=== PATIENT | male | born 1965 | race Caucasian/White ===

== ENCOUNTER → 2016-08-18 | Outpatient (CLI) | payer BC ==
[~2016-08-18] MED LIST: CITA20TA9 PO; TRAM-10 PO
--- NOTE | 2016-08-18 13:30 | DIAGNOSTIC IMAGING REPORT ---
CT SCAN OF THE PARANASAL SINUSES CLINICAL HISTORY: Sinusitis. COMPARISON STUDY: No priors. TECHNIQUE: High-resolution CT scan of the paranasal sinuses is performed. Images are reviewed in the axial, sagittal, and coronal planes. IV contrast was not administered for this examination. CT DOSE: 568.83 mGy.cm FINDINGS: Postoperative change: There is evidence of previous maxillary antrectomy with antrostomy formation. Maxillary antra: There is trace mucosal thickening within the right maxillary antrum. Moderate mucosal thickening is seen in the left maxillary antrum with an air-fluid level. Thickening and sclerosis of the antral narayan indicates chronicity. Anterior ethmoid sinuses: Advanced mucosal thickening is seen in the left. Mild to moderate mucosal thickening is seen on the right. Posterior ethmoid sinuses: Moderate mucosal thickening is seen bilaterally, left greater than right. Sphenoid sinuses: Mild mucosal thickening is seen bilaterally. Frontal sinuses: Mild to moderate mucosal thickening is seen bilaterally, left greater than right. Ostiomeatal complexes: The right maxillary antrostomy appears patent noting significant narrowing secondary to mucosal thickening. The left antrostomy appears occluded. Frontoethmoidal and sphenoethmoidal recesses: The left frontoethmoidal recess as well as the sphenoethmoidal recesses bilaterally are occluded. The right frontal ethmoid recess is patent noting significant narrowing secondary to mucosal thickening. Carotid arteries: The carotid arteries are covered and without septal attachments. Ethmoid roofs: The ethmoid roofs are symmetric. Nasal turbinates: Normal in appearance. Nasal septum: There is mild right were deviation of the bony nasal septum. Optic nerves: Covered. Orbits: The bony orbits are intact. Orbital contents are normal in appearance. Calvarium: The imaged calvarium is normal in appearance Mastoid air cells: Well pneumatized. Brain parenchyma: Partially visualized brain parenchyma is within normal limits. IMPRESSION: 1. Paranasal sinus disease as above. An air-fluid level in the left maxillary antrum is consistent with acute sinusitis. 2. Findings suggest previous bilateral maxillary antrostomy formation. Correlation with the patient's surgical history be required. Electronically signed by: Rich Marcum M.D. 08/18/2016 1:29 PM Dictated Date/Time: 08/18/2016 1:24 PM
== END | disposition home or self-care (01) ==
LOC: C.CTS 13:09
PROVIDERS: ATTEND Otolaryngology
DX: J32.9 Chronic sinusitis, unspecified (principal)

== ENCOUNTER 2016-09-01 04:53 | Day surgery (SDC) | payer BC ==
[2016-08-23 12:12] LABS: BASO % 0.6 %; BASO ABS # 0.04 K/uL (0-0.2); COMPLETE YES; EOS % 4.9 %; HEMATOCRIT 42.3 % (42-52); IG% 0.3 %; LYMPH % 40.7 %; LYMPH ABS # 2.68 K/uL (1.2-3.4); MEAN CELL VOLUME 88.5 fL (80-100); MEAN PLATELET VOLUME 10.6 fL (7.4-10.4); MONO % 7.6 %; NEUT % 45.9 %; PLATELET COUNT 228 K/uL (130-400); RED BLOOD COUNT 4.78 M/uL (4.7-6.1); WHITE BLOOD COUNT 6.59 K/uL (4.8-10.8)
[2016-08-23 12:24] LABS: BLOOD UREA NITROGEN 15 mg/dl (7-18); BUN/CREATININE RATIO 18.1 (10-20); CALCIUM 8.7 mg/dl (8.5-10.1); CARBON DIOXIDE 26 mmol/L (21-32); CHLORIDE 108 mmol/L (98-107); GLUCOSE 101 mg/dl (70-99); SODIUM 142 mmol/L (136-145)
[2016-08-23 14:07] VITALS: BMI 37.0
--- NOTE | 2016-08-31 11:20 | History and Physical ---
History & Physical Date Aug 31, 2016. Chief Complaint sinus infections History of Present Illness The patient is a 51 year old male with complaints of chronic sinusitis Additional History Hepatic Disease: No Endocrine Disorder: No Kidney Disease: No Hypertension: No Heart Disease: No Bleeding Tendencies: No Infectious Diseases: No Allergies Coded Allergies: Oxaprozin (Verified Allergy, Mild, [place] UNDER EYE, 08/23/16) Home Medications Scheduled Citalopram Hydrobromide (Celexa), 20 MG PO QAM Physical Examination Skin: warm/dry, no rash Eyes: normal inspection, EOMI, sclerae normal ENT: normal ENT inspection, pharynx normal Head: normocephalic, atraumatic Neck: supple, no adenopathy, trachea midline Respiratory/Chest: lungs clear, normal breath sounds, no respiratory distress Cardiovascular: regular rate, rhythm, no edema, no murmur Abdomen / GI: normal bowel sounds, non tender Back: normal inspection Extremities: normal inspection, normal range of motion Neurologic/Psych: no motor/sensory deficits, alert, normal reflexes, oriented x 3 Diagnosis chronic sinusitis Plan of Treatment endoscopic sinus surgery
[~2016-09-01] VITALS: Ht 182.9 cm; Wt 122.7 kg
[~2016-09-01 04:53] MED LIST changes: -TRAM-10 PO
[2016-09-01 05:30] VITALS: BP 131/85; PULSE 65; TEMP 36.5; O2SAT 96; Ht 182.9 cm; Wt 122.7 kg
[2016-09-01] MEDS ORDERED: LACTATED RINGER'S 1000ML 1,000 ML IV SCH (06:00)
[2016-09-01] MEDS ORDERED: CEFAZOLIN 3000 MG/65 ML D5W IV SCH (06:00)
[2016-09-01] MEDS ORDERED: LIDOCAINE HCL 2% 2 ML VIAL (20MG/ML) ONE (06:42)
[2016-09-01] MEDS ORDERED: ROCURONIUM BROMIDE 10 MG/ML 5 ML VIAL ONE (06:42)
[2016-09-01] MEDS ORDERED: GLYCOPYRROLATE INJ 0.2 MG/ML VIAL ONE (06:42)
[2016-09-01] MEDS ORDERED: MIDAZOLAM HCL 1 MG/ML 2ML VIAL ONE (06:42)
[2016-09-01] MEDS ORDERED: PROPOFOL IV EMULSION 10 MG/ML 20 ML VIAL IV ONE (06:42)
[2016-09-01] MEDS ORDERED: ONDANSETRON INJ 2 MG/ML 2 ML VIAL ONE (06:42)
[2016-09-01] MEDS ORDERED: NEOSTIGMINE METHYLSULFATE 5 MG/5 ML SYR ONE (06:42)
[2016-09-01] MEDS ORDERED: FENTANYL CITRATE INJ 50 MCG/1 ML 2 ML VIAL ONE ×3 (06:43→08:49)
--- NOTE | 2016-09-01 07:06 | History & Physical Bridge Note ---
H&P Re-Evaluation Bridge Note: I have examined the patient, reviewed the History & Physical and in the interval since the performance of the History & Physical I have noted the following changes of clinical significance: No changes noted
[2016-09-01] MEDS ORDERED: MUPIROCIN 2% OINT 22 GM TUBE ONE (07:07)
[2016-09-01] MEDS ORDERED: ONDANSETRON INJ 2 MG/ML 2 ML VIAL IV PRN ×2 (07:15→08:00)
[2016-09-01] MEDS ORDERED: ATROPINE SULFATE 0.1 MG/ML 5ML SYR IV PRN ×2 (07:15→08:00)
[2016-09-01] MEDS ORDERED: HYDROmorphone INJ 1 MG/ML SYR IV PRN ×2 (07:15→08:00)
[2016-09-01] MEDS ORDERED: EpHEDrine SULFATE INJ 50 MG/ML AMP IV PRN ×2 (07:15→08:00)
[2016-09-01] MEDS ORDERED: LIDOCAINE 4% W/AFRIN NASAL SOLN 4ML ONE (07:25)
[2016-09-01] MEDS ORDERED: EpINEphrine INJ 1MG/ML AMP 1 MG/ML AMP ONE (07:26)
[2016-09-01] MEDS ORDERED: ESMOLOL HCL 10 MG/ML 10 ML VIAL ONE (07:37)
[2016-09-01] MEDS ORDERED: MEPERIDINE HCL 25 MG/ML CARP IV PRN (08:00)
[2016-09-01] MEDS ORDERED: PHENYLEPHRINE 100MCG/ML 5ML SYR IV PRN (08:00)
[2016-09-01] MEDS ORDERED: LABETALOL HCL IV 5 MG/ML 20ML IV PRN (08:00)
[2016-09-01] MEDS ORDERED: FLUMAZENIL 0.1 MG/1 ML 10 ML VIAL IV PRN (08:00)
[2016-09-01] MEDS ORDERED: NALOXONE HCL 0.4 MG/1 ML VIAL/CARP IV PRN (08:00)
[2016-09-01] MEDS ORDERED: FENTANYL CITRATE INJ 50 MCG/1 ML 2 ML VIAL IV PRN (08:00)
[2016-09-01] MEDS ORDERED: DEXAMETHASONE SOD INJ 4 MG/ML VIAL ONE (08:47)
[2016-09-01] MEDS ORDERED: SODIUM CHLORIDE 0.9% 1000ML 1,000 ML IV SCH (09:15)
[2016-09-01] MEDS ORDERED: TRAMADOL HCL 50 MG TAB PO PRN (09:15)
[2016-09-01] MEDS ORDERED: TRAM-10 PO (09:17)
--- NOTE | 2016-09-01 09:18 | Discharge Instructions ---
Discharge Instructions Admission Reason for Admission: Chronic Sinusitis Discharge Discharge Diagnosis / Problem: same Discharge Goals Goal(s): Improve function Activity Recommendations Activity Limitations: resume your previous activity . Instructions / Follow-Up Instructions / Follow-Up ACTIVITY RECOMMENDATIONS: * Being up and around is good, but no strenuous activity, heavy lifting or physical exertion for one week. * Keep your head elevated 30 degrees when lying down or sleeping. * Do not blow your nose for 48 hours, sniff back instead. * Avoid hot showers. OVER THE COUNTER MEDICATIONS: * You may use Tylenol * Avoid aspirin or aspirin containing products, e.g. as they may increase bleeding. SPECIAL CARE INSTRUCTIONS: * Expect to have bloody drainage from your nose and/or down your throat for one to three days. Change drip pad as needed. * Begin irrigating your nose with saline solution today, at least six to ten times per day and sniff back to help remove old clots or crust. * You may experience nasal and facial congestion, pain and pressure, this is normal. * Please call with any significant and/or progressive pain, redness, swelling around the eyes, visual changes, fever of 101.5 degrees F, active bleeding or any problems or concerns. * If active bleeding occurs, spray the nose three times at one minute intervals with Afrin spray and call or cell phone: . If unable to reach the doctor, go to the nearest Emergency Department. Special Diet: * Avoid extremely hot fluids. FOLLOW UP VISIT: Follow-up Visit with Dr. Sal If not already scheduled, please call to schedule. Current Hospital Diet Patient's current hospital diet: Discharge Diet Recommended Diet: Regular Diet Procedures Procedures Performed: Endoscopic Sinus Surgery of Right and Left Total Ethmoidectomies, Right and Left Sphenoid, Frontal and Maxillary Sinusotomies with Computer Guidance Pending Studies Studies pending at discharge: no Medical Emergencies . Who to Call and When: Medical Emergencies: If at any time you feel your situation is an emergency, please call 911 immediately. . Non-Emergent Contact Non-Emergency issues call your: Primary Care Provider . "Provider Documentation" section prepared by Brisa Sal. VTE Core Measure Inpt VTE Proph given/why not?: SCD's [place] Drug Monitoring Program Search Results: no issues identified
[2016-09-01] MEDS ORDERED: MIX: 4% LIDOCAINE 4ML W/1 ML EPI 1:1000 TOP ONE (09:22)
[2016-09-01] MEDS ORDERED: LIDOCAINE/EPINEPHRINE 2% 1:200,000 20 ML SDV INJ ONE (09:22)
--- NOTE | 2016-09-01 09:41 | Anesthesiology Progress Note ---
Anesthesia Post Op Note Date & Time Sep 01, 2016 at 09:41 Vital Signs Pain Intensity: 3 Vital Signs Past 12 Hours Date Time Temp Pulse Resp B/P Pulse Ox O2 Delivery O2 Flow Rate FiO2 09/01/16 09:27 36.5 66 14 141/94 100 Mask 10 09/01/16 05:30 36.5 65 20 131/85 96 Room Air Notes Mental Status: alert / awake / arousable, participated in evaluation Pt Amnestic to Procedure: Yes Nausea / Vomiting: adequately controlled Pain: adequately controlled Airway Patency, RR, SpO2: stable & adequate BP & HR: stable & adequate Hydration State: stable & adequate Anesthetic Complications: no major complications apparent The patient did well. He was counseled to use his CPAP machine today for any naps and when he goes to bed tonight.
[2016-09-01] MEDS: FENTANYL CITRATE INJ 50 MCG/1 ML 2 ML VIAL IV PRN ×2 (09:43→09:48)
--- NOTE | 2016-09-01 09:57 | OPERATIVE REPORT ---
DATE OF OPERATION: 09/01/2016 PREOPERATIVE DIAGNOSIS: Chronic sinusitis. POSTOPERATIVE DIAGNOSES: Same plus polyps and infected left frontal, ethmoidal and maxillary sinuses. PROCEDURE: Right and left frontal, right and left sphenoid, right and left total ethmoid and right and left maxillary sinus antrostomy. SURGEON: Dr. Sal. ANESTHESIA: General endotracheal. COMPLICATIONS: None. BLOOD LOSS: 110 mL. HISTORY OF PRESENT ILLNESS: A 51-year-old gentleman with significant recurrent chronic sinusitis treated with antibiotics without response and has opacification of left side more than the right side sinuses. DESCRIPTION OF PROCEDURE: The patient was brought to operative room and placed in supine position. General endotracheal anesthesia was induced, prepped with Betadine paint and draped in usual sterile manner. Nose decongested using cottonoids with a solution of 4 mL of 4% Xylocaine with 1 mL of epinephrine. Injection 2% Xylocaine 1:1,000 strength epinephrine was also used. BrainLAB device calibrated and used for the entire procedure. The left sphenoid was cannulated with guidewire and dilated using the 6 mm balloon as was the right sphenoid. The left nasofrontal duct was cannulated with guidewire and dilated using the 6 mm balloon with BrainLAB computer guidance. There was purulent material. The guidewire was removed, the catheter was used sinus irrigation device and the frontal sinus was irrigated clean with saline. The guidewire was replaced as the catheter was withdrawn, the guidewire was left in as a marker for frontal sinusotomy. Frontal sinusotomy was performed by removing the anterior wall, then the posterior wall of the agger nasi cell following the guidewire superiorly, using the shaver coupled with the BrainLAB device, removing the anterior and posterior wall of the agger nasi cell. At this point, total ethmoidectomy was performed opening up the bullae ethmoidalis going through the ground lamella finding polyps going through the posterior ethmoid air cells, delineating the skull base superiorly and lamina papyracea laterally with the BrainLAB device and opening up all of these structures along with a significant amount of polypoid mucosa exonerating all the posterior and all the anterior ethmoid air cells. The sphenoid ostia had to be opened using the shaver removing polyps from the inferior border of the superior meatus from hanging from the superior turbinate. The maxillary ostia had to be found using the seeker and then opened to a primary ostia by removing the posterior border and the residual polypoid posterior border which is anterior wall of the bullae ethmoidalis. The right frontal sinusotomy, sphenoidotomy, total ethmoidectomy, and maxillary sinus antrostomy was performed in a similar manner. Propel stents were placed. The patient tolerated the procedure well and was taken to recovery area in satisfactory condition. I attest to the content of the Intraoperative Record and any orders documented therein. Any exceptio ns are noted below.
[2016-09-01 10:15] VITALS: BP 149/81; PULSE 65; TEMP 36.7; O2SAT 93
[2016-09-01] MEDS ORDERED: ACETAMINOPHEN 500 MG TAB PO ONE (10:40)
[2016-09-01 10:45] VITALS: BP 146/80; PULSE 75; TEMP 36.5; O2SAT 95
[2016-09-01 11:15] VITALS: BP 146/82; PULSE 75; TEMP 36.6; O2SAT 98
== END 2016-09-01 11:45 | disposition home or self-care (01) ==
LOC: C.ACU 04:53
PROVIDERS: ATTEND Otolaryngology
DX: J32.9 Chronic sinusitis, unspecified (principal)